=== PATIENT | male | born 1995 | race African-American/Black ===

== ENCOUNTER 2022-02-17 18:06 | Emergency (ER) | payer BC, OTHER, SELFPAY ==
[2022-02-17] MEDS ORDERED: HYDROCODONE/APAP 10/325 TAB ONE ×3 (18:30→19:19)
[2022-02-17] MEDS ORDERED: TETANUS & DIPHTHERIA TOX,ADULT 0.5 ML VIAL ONE (19:19)
[2022-02-17] MEDS ORDERED: ONDANSETRON 4 MG (ODT) TAB ONE (19:38)
[2022-02-17] MEDS ORDERED: MORPHINE 4 MG/ML SYR ONE (19:38)
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
[2022-02-17 20:33] VITALS: TEMP 98
[2022-02-17 20:34] VITALS: BP 121/85; O2SAT 97
--- OUTSIDE RECORDS SUMMARY | 2022-02-19 14:38 | XMS REPORT | Continuity of Care Document ---
:1995 Author Organization [facility] t Address [address] [place] [address] Care Team Providers Name Role Phone MIKAYLA OAKLEY Primary Care Physician Unavailable THO Attending Clinician Unavailable Jung STOREY Attending Clinician Unavailable SHUKRI Attending Clinician Unavailable THO Admitting Clinician Unavailable Payers Payer Name Policy Type Policy Number Effective Date Expiration Date S ource [facility] - [id number] 2021 00:00:00 OUT OF [facility] 2 [id number] 2022 00:00:00 Problems This patient has no known problems. Allergies, Adverse Reactions, Alerts Allergy Allergy Status Severity Reaction(s) Onset Inactive Treating Comm ents Source Name Type Date Date Clinician NO KNOWN Drug Active [facility] Medications This patient has no known medications. Procedures This patient has no known procedures. Encounters Start End Encounter Admission Attending Care Care Encounter Source Date/Time Date/Time Type Type Clinicians Facility Department ID 2022-02-18 Inpatient Anupama NETTLES [facility] [id number] [facility] 01:09:00 CHERELLE laura [facility] 2022-03-03 2022-03-03 Outpatient ELIAS STOREY [id number] 31 Elias 16:00:00 16:00:00 ESTEBAN zelaya 2020-10-03 2020-10-03 Emergency SHUKRI Thuy [id number] [place] 00:00:00 00:00:00 WILMA Garcia Method [facility] Results This patient has no known results.
== END 2022-02-17 20:28 | disposition home or self-care (01) ==
LOC: ER 18:06
DX: T22.212A Burn of second degree of left forearm, initial encounter (principal); T23.202A Burn of second degree of left hand, unspecified site, initial encounter; T20.20XA Burn of second degree of head, face, and neck, unspecified site, initial encounter; T31.0 Burns involving less than 10% of body surface; Z23 Encounter for immunization; Z20.822 Contact with and (suspected) exposure to COVID-19
CPT/HCPCS: 90714; U0003; Q0162; 90471; 96372; 99283

== ENCOUNTER 2024-10-14 09:26 | Emergency (ER) | payer BC, SELFPAY ==
[2024-10-14] MEDS ORDERED: IBUPROFEN 400 MG TAB ONE (09:38)
--- NOTE | 2024-10-14 10:17 | RAD REPORT ---
EXAM: XR LEFT HAND HISTORY: Pain. PAIN COMPARISON: None TECHNIQUE: Multiple projections of the left hand submitted. FINDINGS: Soft tissue swelling is seen along the ulnar aspect of the wrist and hand. No definitive ev idence of acute fracture or dislocation..
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
[2024-10-14 10:47] VITALS: BP 159/105; TEMP 98.2; O2SAT 98
== END 2024-10-14 10:43 | disposition home or self-care (01) ==
LOC: ER 09:26
DX: S60.222A Contusion of left hand, initial encounter (principal)
CPT/HCPCS: 99283

== ENCOUNTER 2024-12-09 18:23 | Emergency (ER) | payer SELFPAY ==
[2024-12-09] MEDS ORDERED: HYDROCODONE/APAP 7.5/325 MG TAB ONE (19:11)
[2024-12-09] MEDS ORDERED: LIDOCAINE HCL JELLY 2% 6 ML SYRINGE TOP ONE (19:11)
--- NOTE | 2024-12-09 20:14 | EDPHYS ---
Physician Documentation [facility] Name: Primitivo Aguilar Age: 29 yrs Sex: Male : 1995 Arrival Date: 12/09/2024 Time: 18:23 Bed 10 Private MD: ED Physician Marino Cash HPI: 12/09 19:10 This 29 yrs old Black Male presents to ER via Ambulatory with complaints of Ear lobe cp swelling. 19:10 the patient presents with a swollen area of the lobe of right ear. cp 19:10 Description: erythematous, fluctuant, swollen, tense. Onset: The symptoms/episode cp began/occurred yesterday, and became worse today. Possible cause(s): unknown. Associated signs and symptoms: Pertinent negatives: discharge, drainage, fever. Historical: - Allergies: 18:41 No Known Allergies; jb4 - PMHx: 18:41 None; jb4 - PSHx: 18:41 left hand; jb4 - Immunization history:: Adult Immunizations up to date. - Infectious Disease History:: Denies. - Social history:: Smoking status: Patient denies any tobacco usage or history of. ROS: 19:15 Constitutional: Negative for body aches, chills, fever, poor PO intake, cp 19:15 ENT: Positive for swelling and erythema and pain of lobe of right ear, cp 19:15 Neck: Negative for pain with movement, pain at rest, stiffness, 19:15 Neuro: Negative for altered mental status, dizziness, headache, weakness, 19:15 All other systems are negative, Exam: 19:20 Constitutional: The patient appears in no acute distress, alert, awake, non-toxic, well cp developed, well nourished, uncomfortable, 19:20 Head/Face: Normocephalic, atraumatic. cp 19:20 ENT: External ear(s): lobe of right ear appears with swelling and erythema, fluctuant and tender to palpation, 19:20 Neck: External neck: is normal, ROM/movement: is normal, is supple, 19:20 Chest/axilla: Inspection: normal, 19:20 Cardiovascular: Rate: normal, 19:20 Respiratory: the patient does not display signs of respiratory distress, Respirations: normal, no use of accessory muscles, no retractions, labored breathing, is not present, 19:20 Abdomen/GI: Inspection: abdomen appears normal, Vital Signs: 18:41 BP 130 / 81; Pulse 71; Resp 16; Pulse Ox 99% on R/A; Weight 81.65 kg (R); Height 5 ft. jb4 10 in. (R); 18:41 Body Mass Index 25.83 (81.65 kg, 177.8 cm) jb4 Procedures: 20:15 I \T\ D: Incision and drainage was performed for an abscess of the lobe of right ear cp Prepped with Betadine, the patient tolerated the procedure well, area pierced with 18 gauge needle attached to syringe and 1 cc purulent drainage aspirated. MDM: 20:00 Differential diagnosis: abscess, allergic reaction, cellulitis, insect bite. cp 20:14 Medical Screening Exam initiated cp 20:14 Data reviewed: vital signs, nurses notes, and as a result, I will discharge patient. cp 20:14 Counseling: I had a detailed discussion with the patient and/or guardian regarding the cp historical points, exam findings, and any diagnostic results supporting the discharge/admit diagnosis, to return to the emergency department if symptoms worsen or persist or if there are any questions or concerns that arise at home. Response to treatment: the patient's symptoms have mildly improved after treatment, and as a result, I will discharge patient. 05 18:57 Order name: I\T\D Setup; Complete Time: 19:04 cp Administered Medications: 19:15 Drug: Hydrocodone-Acetaminophen PO (7.5 mg-325 mg) 1 tabs PO once; RASS on ADMIN: jb4 Combtv4, Very Agttd3, Agttd2, Rstlss1, AlertClm0, Drwsy-1, Lt Sdtn-2, Mod Sdtn-3, Dp Sdtn-4, UnArsble-5 Route: PO; 20:17 Follow up: Response: No adverse reaction; Marked relief of symptoms 4 19:15 Drug: Lidocaine Mucous Membrane Gel 2 % 1 ea 15 ml Mucous Membrane once; apply to right jb4 earlobe {Note: applied to right ear lobe.} Volume: 15 ml; Route: Mucous Membrane; 20:23 Drug: Trimethoprim-Sulfamethoxazole PO (160 mg-800 mg (DS) 2 tablet PO once Route: PO; jb4 20:23 Follow up: Response: Medication administered at discharge. jb4 20:23 Drug: Clindamycin PO 600 mg PO once Route: PO; jb4 20:23 Follow up: Response: Medication administered at discharge. jb4 Disposition: 12/10 18:39 Co-signature as Attending Physician, Marino Cash MD I reviewed the patient's care rn provided by the Advanced Practice Provider and agree with the diagnosis and treatment plan. 19:31 Chart complete. cp Disposition Summary: 12/09/24 20:14 Discharge Ordered Notes: Location: Home cp Problem: new cp Symptoms: have improved cp Condition: Stable cp Diagnosis - Abscess of right external ear cp - Cellulitis of right external ear cp Followup: cp - With: Emergency Department - When: As needed - Reason: Worsening of condition Discharge Instructions: - Discharge Summary Sheet cp - Skin Abscess cp - Cellulitis, Adult cp Forms: - Medication Reconciliation Form cp - Antibiotic Education cp - Prescription Opioid Use cp - Patient Portal Instructions cp - Leadership Thank You Letter cp Prescriptions: - Anaprox DS 550 mg Oral Tablet - take 1 tablet ORAL route every 12 hours As needed; 20 tablet; Refills: 0, cp Product Selection Permitted - Clindamycin HCl 300 mg Oral Capsule - take 1 capsule ORAL route every 6 hours for 10 days; 40 capsule; Refills: 0, cp Product Selection Permitted - Bactrim DS 800-160 mg Oral Tablet - take 1 tablet ORAL route every 12 hours for 10 days; 20 tablet; Refills: 0, cp Product Selection Permitted Signatures: Marino Cash MD MD rn Randal Hope PA PA cp Bryson, James RN RN jb4
--- NOTE | 2024-12-09 20:14 | ER ---
Nurse's Notes [facility] Name: Primitivo Aguilar Age: 29 yrs Sex: Male : 1995 Arrival Date: 12/09/2024 Time: 18:23 Bed 10 Private MD: Diagnosis: Abscess of right external ear;Cellulitis of right external ear Presentation: 12/09 18:40 Chief complaint: Patient states: My right earlobe started swelling yesterday and it is jb4 worse today and more painful. Coronavirus screen: At this time, the client does not indicate any symptoms associated with coronavirus-19. Ebola Screen: No symptoms or risks identified at this time. Initial Sepsis Screen: Does the patient meet any 2 criteria? No. Patient's initial sepsis screen is negative. Does the patient have a suspected source of infection? No. Patient's initial sepsis screen is negative. Risk Assessment: Do you want to hurt yourself or someone else? Patient reports no desire to harm self or others. Onset of symptoms was December 08, 2024. Transition of care: patient was not received from another setting of care. 18:40 Method Of Arrival: Ambulatory jb4 18:40 Acuity: DWAYNE 4 jb4 Historical: - Allergies: 18:41 No Known Allergies; jb4 - PMHx: 18:41 None; jb4 - PSHx: 18:41 left hand; jb4 - Immunization history:: Adult Immunizations up to date. - Infectious Disease History:: Denies. - Social history:: Smoking status: Patient denies any tobacco usage or history of. Screenin:45 [facility] ED Fall Risk Assessment (Adult) History of falling in the last 3 months, jb4 including since admission No falls in past 3 months (0 pts) Confusion or Disorientation No (0 pts) Intoxicated or Sedated No (0 pts) Impaired Gait No (0 pts) Mobility Assist Device Used No (0 pt) Altered Elimination No (0 pt) Score/Fall Risk Level 0 - 2 = Low Risk Oriented to surroundings, Maintained a safe environment. Abuse screen: Denies threats or abuse. Nutritional screening: No deficits noted. Tuberculosis screening: No symptoms or risk factors identified. Assessment: 18:45 General: Appears in no apparent distress. uncomfortable, Behavior is calm, cooperative, jb4 appropriate for age. Pain: Complains of pain in right ear Pain does not radiate. Pain currently is 6 out of 10 on a pain scale. Neuro: Level of Consciousness is awake, alert, obeys commands, Oriented to person, place, time, situation. Cardiovascular: Patient's skin is warm and dry. Respiratory: Airway is patent Respiratory effort is even, unlabored, Respiratory pattern is regular, symmetrical. Derm: Skin is intact, Skin is dry, Skin is normal, Skin temperature is warm. Musculoskeletal: Circulation, motion, and sensation intact. Range of motion: intact in all extremities. 19:57 Reassessment: Patient appears in no apparent distress at this time. Patient and/or jb4 family updated on plan of care and expected duration. Pain level reassessed. Patient is alert, oriented x 3, equal unlabored respirations, skin warm/dry/pink. Vital Signs: 18:41 BP 130 / 81; Pulse 71; Resp 16; Pulse Ox 99% on R/A; Weight 81.65 kg (R); Height 5 ft. jb4 10 in. (R); 18:41 Body Mass Index 25.83 (81.65 kg, 177.8 cm) jb4 ED Course: 18:27 Patient arrived in ED. mr 18:27 Randal Hope PA is PHCP. cp 18:28 Marino Cash MD is Attending Physician. cp 18:41 Triage completed. jb4 18:41 Arm band placed on left wrist. jb4 18:45 Patient has correct armband on for positive identification. Bed in low position. Call jb4 light in reach. Side rails up X 1. Provided Education on: plan of care. 18:45 Patient did not have IV access during this emergency room visit. jb4 19:57 Cristino Marrero, RN is Primary Nurse. jb4 20:09 Assist provider with I \T\ D: of an abscess on right ear lobe Set up I\T\D tray. Performed malathi 4 by Randal CANDELARIA Patient tolerated well. Administered Medications: 19:15 Drug: Hydrocodone-Acetaminophen PO (7.5 mg-325 mg) 1 tabs PO once; RASS on ADMIN: jb4 Combtv4, Very Agttd3, Agttd2, Rstlss1, AlertClm0, Drwsy-1, Lt Sdtn-2, Mod Sdtn-3, Dp Sdtn-4, UnArsble-5 Route: PO; 20:17 Follow up: Response: No adverse reaction; Marked relief of symptoms jb4 19:15 Drug: Lidocaine Mucous Membrane Gel 2 % 1 ea 15 ml Mucous Membrane once; apply to right jb4 earlobe {Note: applied to right ear lobe.} Volume: 15 ml; Route: Mucous Membrane; 20:23 Drug: Trimethoprim-Sulfamethoxazole PO (160 mg-800 mg (DS) 2 tablet PO once Route: PO; jb4 20:23 Follow up: Response: Medication administered at discharge. jb4 20:23 Drug: Clindamycin PO 600 mg PO once Route: PO; jb4 20:23 Follow up: Response: Medication administered at discharge. jb4 Medication: 18:45 VIS not applicable for this client. jb4 Outcome: 20:14 Discharge ordered by . cp 20:28 Discharged to home ambulatory, with friend, jb4 20:28 Condition: stable 20:28 Discharge instructions given to patient, Instructed on discharge instructions, follow up and referral plans. no drinking with medication, medication usage, Demonstrated understanding of instructions, follow-up care, medications, Prescriptions given X 3, 20:29 Patient left the ED. jb4 Signatures: Mini Blackburn, Reg Reg mr Randal Hope PA PA Cristino Baltazar, RN RN jb4 Corrections: (The following items were deleted from the chart) 20:09 18:45 No provider procedures requiring assistance completed. jb4 jb4
[2024-12-09] MEDS ORDERED: SMZ./TMP. 800/160 MG TABLET ONE (20:19)
[2024-12-09 20:35] VITALS: BP 130/81; O2SAT 99
== END 2024-12-09 20:29 | disposition home or self-care (01) ==
LOC: ER 18:23
PROC: 0H92XZZ Drainage of Right Ear Skin, External Approach (ICD-10-PCS; principal; 2024-12-09)
DX: H60.01 Abscess of right external ear (principal); H60.11 Cellulitis of right external ear
CPT/HCPCS: 99283